=== PATIENT | female | born 1960 | race Caucasian/White ===

== ENCOUNTER 2024-04-22 13:51 | Emergency (ER) | payer OTHER ==
[~2024-04-22] VITALS: Ht 157.5 cm; Wt 108.3 kg
[~2024-04-22 13:51] MED LIST: ESCITALOPRAM OX10 MG PO; GABAPENTIN300 MG PO; GLIPIZIDE5 MG PO; LISINOPRIL-HCT1 EACH PO; SUMATRIPTAN SUC50 MG PO; TRULICITY1.5 MG/0.5 SUB-Q; XARELTO15 MG PO; XARELTO20 MG PO
--- OUTSIDE RECORDS SUMMARY | 2024-04-22 13:54 | XMS ---
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 [place] VISIT COUNT (12 MO.) 3 [place]MAINE [place] TOTAL 3 NOTE: Visits indicate total known visits. ED/UCC VISIT TRACKING (12 MO.) 04/22/2024 13:52 [facility] [place] TYPE: Emergency COMPLAINT: - WEAKNESS 03/05/2024 16:28 [facility] [place] TYPE: Emergency COMPLAINT: - CHEST PAIN DIAGNOSES: - Allergy status to narcotic agent - Allergy status to other antibiotic agents - Allergy status to other drugs, medicaments and biological substances - Allergy status to penicillin - Allergy status to sulfonamides - Allergy to other foods - Essential (primary) hypertension - long term acute care registered nurse (current) use of anticoagulants - [facility] (current) use of oral hypoglycemic drugs - Long-term (current) use of injectable non-insulin antidiabetic drugs - Other chest pain - Other fci (current) drug therapy - Type 2 diabetes mellitus without complications 02/12/2024 02:05 [facility] [place] TYPE: Emergency COMPLAINT: - ABD PAIN INPATIENT VISIT TRACKING (12 MO.) 02/12/2024 05:35 [facility] [place] TYPE: Critical Care COMPLAINT: - PULMONARY EMBOLUS DIAGNOSES: - Acquired absence of other specified parts of digestive tract - Acquired absence of other specified parts of digestive tract - Allergy status to other antibiotic agents - Allergy status to other antibiotic agents - Allergy status to other drugs, medicaments and biological substances - Allergy status to other drugs, medicaments and biological substances - Allergy status to sulfonamides - Allergy status to sulfonamides - Allergy to other foods - Allergy to other foods - Cardiac arrhythmia, unspecified - Cardiac arrhythmia, unspecified - Essential (primary) hypertension - Essential (primary) hypertension - Hypomagnesemia - Hypomagnesemia - Other fci (current) drug therapy - Other termite exterminator (current) drug therapy - Other pulmonary embolism without acute cor pulmonale - Other specified diseases of intestine - Other specified diseases of intestine - Other specified postprocedural states - Other specified postprocedural states - Type 2 diabetes mellitus without complications - Type 2 diabetes mellitus without complications [id number]
[2024-04-22] MEDS ORDERED: ondansetron HCL 4 MG/2 ML VIAL IV ONE (14:30)
[2024-04-22] MEDS ORDERED: SODIUM CHLORIDE 0.9% 1,000 ML IV ONE ×2 (14:30→16:30)
[2024-04-22 14:40] LABS: BASOPHILS 0.6 % (0-2); EOSINOPHILS 1.7 % (0-6); HEMATOCRIT 41.8 % (35.0-50.0); HEMOGLOBIN 13.4 g/dL (12.0-18.0); LYMPHOCYTES 15.6 % (24-44); MCH 26.8 (27-36); MCHC 32.1 g/dl (30-36); MCV 83.5 fl (81-99); MONOCYTES 6.2 % (0-12); NEUTROPHILS 75.9 % (39-80); PLATELET COUNT 341 K/uL (140-440); RBC 5.01 M/ul (4.3-5.7); RDW 14.6 (10.5-15.0)
[2024-04-22] MEDS ORDERED: VITAMIN D31250 MC1 PO (14:57)
[2024-04-22] MEDS ORDERED: OMEPRAZOLE20 MG PO (14:57)
[2024-04-22] MEDS ORDERED: TRAZODONE HCL50 MG PO (14:57)
[2024-04-22 14:59] LABS: ALBUMIN 3.6 g/dL (3.4-5.0); ALBUMIN/GLOBULIN RATIO 0.82 (1.1-2.4); ANION GAP 17.9 (7-21); BILIRUBIN, TOTAL 0.4 ng/dL (0.2-1.0); BUN/CREATININE RATIO 21.42 (6.0-28.6); CALCIUM 9.7 mg/dL (8.5-10.1); CREATININE, SERUM 1.54 mg/dL (0.55-1.02); POTASSIUM 3.9 mmol/L (3.5-5.1)
[2024-04-22] MEDS ORDERED: DIPHENOXYLATE/ATROPINE 1 EA TAB PO ONE (16:30)
[2024-04-22] MEDS ORDERED: ONDANSETRON ODT8 MG PO (16:34)
[2024-04-22] MEDS ORDERED: ONDANSETRON 4 MG HOME.PACK SL ONE (17:30)
[2024-04-22 18:20] VITALS: BP 135/62
== END 2024-04-22 18:20 | disposition home or self-care (01) ==
LOC: ED 13:51
PROVIDERS: Emergency Medicine
DX: K52.9 Noninfective gastroenteritis and colitis, unspecified (principal); I10 Essential (primary) hypertension; E11.9 Type 2 diabetes mellitus without complications; Z88.2 Allergy status to sulfonamides; Z88.1 Allergy status to other antibiotic agents; Z88.5 Allergy status to narcotic agent; Z88.0 Allergy status to penicillin; Z91.018 Allergy to other foods; Z88.8 Allergy status to other drugs, medicaments and biological substances; Z79.01 Long term (current) use of anticoagulants; Z79.899 Other long term (current) drug therapy; Z79.85 Long-term (current) use of injectable non-insulin antidiabetic drugs; Z79.84 Long term (current) use of oral hypoglycemic drugs
CPT/HCPCS: 36415; 80053; 85025; 96361; 96374; 99284-25; A9270; J2405; J7030

== ENCOUNTER 2025-03-11 02:20 | Emergency (ER) | payer OTHER ==
[~2025-03-11] VITALS: Ht 157.5 cm; Wt 99.4 kg
[~2025-03-11 02:20] MED LIST changes: +CYCLOBENZAPRINE5 MG PO; +DAPAGLIFLOZIN10 MG PO; +DAPAGLIFLOZIN5 MG PO; +LISINOPRIL40 MG PO; +ONDANSETRON ODT8 MG PO; +PRILOSEC OTC20 MG PO; +TRAZODONE HCL50 MG PO; +VICTOZA 3-0.6 MG/0.1 SUB-Q; +VITAMIN D31250 MC1 PO
[2025-03-11] MEDS ORDERED: ondansetron HCL 4 MG/2 ML VIAL IV ONE (02:45)
[2025-03-11] MEDS ORDERED: LACTATED RINGER'S 1,000 ML IV ONE (02:45)
[2025-03-11 03:05] LABS: BASOPHILS 0.4 % (0-2); EOSINOPHILS 0.9 % (0-6); HEMATOCRIT 43.7 % (35.0-50.0); LYMPHOCYTES 3.9 % (24-44); MCH 24.1 (27-36); MCHC 31.9 g/dl (30-36); MCV 75.4 fl (81-99); MONOCYTES 5.9 % (0-12); NEUTROPHILS 88.9 % (39-80); PLATELET COUNT 421 K/uL (140-440); RDW 17.9 (10.5-15.0)
[2025-03-11 03:19] LABS: ALBUMIN 3.5 g/dL (3.4-5.0); ALBUMIN/GLOBULIN RATIO 0.58 (1.1-2.4); ANION GAP 13.2 (7-21); BILIRUBIN, TOTAL 0.5 mg/dL (0.2-1.0); BUN/CREATININE RATIO 27.58 (6.0-28.6); CALCIUM 10.4 mg/dL (8.5-10.1); CREATININE, SERUM 1.16 mg/dL (0.55-1.02); MAGNESIUM 1.8 mg/dL (1.8-2.4); POTASSIUM 4.2 mmol/L (3.5-5.1); PROTEIN, TOTAL 9.5 g/dL (6.4-8.2)
[2025-03-11 03:31] LABS: CORONAVIRUS COVID-19 AG NEGATIVE (NEGATIVE); INFLUENZA A AG NEGATIVE (NEGATIVE); INFLUENZA B AG NEGATIVE (NEGATIVE)
[2025-03-11] MEDS ORDERED: ONDANSETRON ODT8 MG PO (03:37)
[2025-03-11] MEDS ORDERED: PROMETHAZINE HC25 M1 PO (03:37)
[2025-03-11] MEDS ORDERED: LOMOTIL TABLET1 EACH PO (03:37)
[2025-03-11] MEDS ORDERED: DIPHENOXYLATE/ATROPINE 1 EA TAB PO ONE (03:45)
[2025-03-11 03:55] VITALS: BP 123/68
[2025-03-11] MEDS ORDERED: ONDANSETRON 4 MG HOME.PACK SL ONE (04:00)
[2025-03-11] MEDS ORDERED: PROMETHAZINE HCL 25 MG HOME.PACK PO ONE (04:00)
== END 2025-03-11 03:58 | disposition home or self-care (01) ==
LOC: ED 02:20
PROVIDERS: Family Medicine
DX: K52.9 Noninfective gastroenteritis and colitis, unspecified (principal); E11.9 Type 2 diabetes mellitus without complications; I10 Essential (primary) hypertension; Z79.899 Other long term (current) drug therapy; Z88.2 Allergy status to sulfonamides; Z88.1 Allergy status to other antibiotic agents; Z91.018 Allergy to other foods; Z88.8 Allergy status to other drugs, medicaments and biological substances; Z88.5 Allergy status to narcotic agent
CPT/HCPCS: 36415; 80053; 83735; 85025; 96374; 99284-25; A9270; J2405; J7121

== ENCOUNTER 2025-05-10 16:36 | Emergency (ER) | payer OTHER ==
[~2025-05-10] VITALS: Ht 157.5 cm; Wt 104.0 kg
[~2025-05-10 16:36] MED LIST changes: +LOMOTIL TABLET1 EACH PO; +PROMETHAZINE HC25 M1 PO
[2025-05-10 17:00] LABS: BASOPHILS 0.3 % (0.1-1.2); HEMOGLOBIN 11.7 g/dL (11.2-15.7); LYMPHOCYTES 3.8 % (19.3-51.7); MCH 23.7 PG (25.6-32.2); MCV 78.9 fL (79.4-94.8); MONOCYTES 6.1 % (4.7-12.5); NEUTROPHILS 88.5 % (34.0-71.1); PLATELET COUNT 308 K/uL (182-369); RBC 4.94 M/uL (3.93-5.22)
[2025-05-10] MEDS ORDERED: SODIUM CHLORIDE 0.9% 1,000 ML IV PRN ×2 (17:00)
[2025-05-10] MEDS ORDERED: CEFTRIAXONE SODIUM 2 GM in SODIUM CHLORIDE 0.9% 100 ML IV ONE (17:00)
[2025-05-10 17:16] LABS: ALBUMIN 2.8 g/dL (3.4-5.0); ALBUMIN/GLOBULIN RATIO 0.55 (1.1-2.4); ANION GAP 11.6 (7-21); BILIRUBIN, TOTAL 0.5 mg/dL (0.2-1.0); BUN/CREATININE RATIO 22.77 (6.0-28.6); CALCIUM 9.7 mg/dL (8.5-10.1); CREATININE, SERUM 1.01 mg/dL (0.55-1.02); POTASSIUM 4.6 mmol/L (3.5-5.1); PROTEIN, TOTAL 7.9 g/dL (6.4-8.2)
[2025-05-10 17:21] LABS: LACTIC ACID, BLOOD 0.9 mmol/L (0.4-2.0)
[2025-05-10 18:24] LABS: BILIRUBIN, URINE NEGATIVE (negative); BLOOD/HGB, URINE NEGATIVE (Negative); KETONE, URINE NEGATIVE (Negative); LEUK ESTERASE, URINE NEGATIVE (negative); NITRITE, URINE NEGATIVE (negative)
[2025-05-10] MEDS ORDERED: metroNIDAZOLE/SODIUM CHLORIDE 500 MG/100 ML PIGGYBACK IV ONE (20:15)
[2025-05-10] MEDS ORDERED: ACETAMINOPHEN 500 MG TAB PO ONE (21:00)
[2025-05-10 21:40] VITALS: BP 126/66
--- NOTE | 2025-05-12 10:11 | EKG ---
[facility] [address] [place], [place] [address] Signed Sinus tachycardia Left axis deviation Low voltage QRS Cannot rule out Anterior infarct (cited on or before 12-FEB-2024) Abnormal ECG When compared with ECG of 12-OCT-2024 17:55, No significant change was found Confirmed by Juan C Casanova DO ([id number]) on 05/12/2025 10:11:48 AM Electronically Signed By: JUAN C CASANOVA DO 05/12/25 1011 PATIENT NAME: CAMILO ROSE Electrocardiogram DATE OF : 60 PHYSICIAN: JUAN C CASANOVA DO REPORT #: [id number] REPORT IS CONFIDENTIAL AND NOT TO BE RELEASED WITHOUT AUTHORIZATION
== END 2025-05-10 21:40 | disposition short-term general hospital (02) ==
LOC: ED 16:36
PROVIDERS: Emergency Medicine
DX: A41.9 Sepsis, unspecified organism (principal); K65.1 Peritoneal abscess; E11.9 Type 2 diabetes mellitus without complications; I10 Essential (primary) hypertension; Z88.2 Allergy status to sulfonamides; Z88.1 Allergy status to other antibiotic agents; Z88.0 Allergy status to penicillin; Z91.018 Allergy to other foods; Z79.899 Other long term (current) drug therapy
CPT/HCPCS: 36415; 71045; 74177; 80053; 81003; 83605; 85025; 87040; 96375; 99285-25; A9270; J0696; J7030; Q9967

== ENCOUNTER 2025-06-02 12:50 | Emergency (ER) | payer OTHER ==
[~2025-06-02] VITALS: Ht 157.5 cm; Wt 96.4 kg
--- OUTSIDE RECORDS SUMMARY | 2025-06-02 12:58 | XMS ---
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 E.D. VISIT COUNT (12 MO.) 5 TREMAINE Rapp TOTAL 5 NOTE: Visits indicate total known visits. ED/UCC VISIT TRACKING (12 MO.) 06/02/2025 12:52 [facility] [place] TYPE: Emergency COMPLAINT: - NAUSEA, DIARRHEA, HOT/COLD 05/10/2025 16:37 [facility] [place] TYPE: Emergency COMPLAINT: - ABDOMEN PAIN DIAGNOSES: - Allergy status to other antibiotic agents - Allergy status to penicillin - Allergy status to sulfonamides - Allergy to other foods - Essential (primary) hypertension - Other intermodal truck driver (current) drug therapy - Peritoneal abscess - Sepsis, unspecified organism - Type 2 diabetes mellitus without complications - Unspecified abdominal pain 03/11/2025 02:21 [facility] [place] TYPE: Emergency COMPLAINT: - FLU SYMPTOMS DIAGNOSES: - Allergy status to narcotic agent - Allergy status to other antibiotic agents - Allergy status to other drugs, medicaments and biological substances - Allergy status to sulfonamides - Allergy to other foods - Essential (primary) hypertension - Nausea with vomiting, unspecified - Noninfective gastroenteritis and colitis, unspecified - Other intermodal truck driver (current) drug therapy - Type 2 diabetes mellitus without complications 10/12/2024 13:58 [facility] [place] TYPE: Emergency COMPLAINT: - VOMITING 07/05/2024 20:36 [facility] TYPE: Emergency COMPLAINT: - FALL INPATIENT VISIT TRACKING (12 MO.) 05/10/2025 23:53 [facility] TYPE: Colorectal DIAGNOSES: - Colostomy status - intraabdominal abscess/ sepsis 03/21/2025 05:48 [facility] TYPE: Colorectal DIAGNOSES: - Diverticulosis of intestine, part unspecified, without perforation or abscess without bleeding - Other specified diseases of intestine - Type 2 diabetes mellitus with hyperglycemia - Type 2 diabetes mellitus with hyperglycemia - Unspecified intestinal obstruction, unspecified as to partial versus complete obstruction - Unspecified intestinal obstruction, unspecified as to partial versus complete obstruction 10/13/2024 23:02 [facility] TYPE: Colorectal DIAGNOSES: - Unspecified intestinal obstruction, unspecified as to partial versus complete obstruction - large bowel obtruction with mass 10/12/2024 18:[address] [facility] [place] TYPE: Medical Surgical COMPLAINT: - LARGE BOWEL OBSTRUCTION DIAGNOSES: - Acquired absence of other organs - Acquired absence of other organs - Acquired absence of other specified parts of digestive tract - Acquired absence of other specified parts of digestive tract - Allergy status to narcotic agent - Allergy status to narcotic agent - Allergy status to other antibiotic agents - Allergy status to other antibiotic agents - Allergy status to other drugs, medicaments and biological substances - Allergy status to other drugs, medicaments and biological substances - Allergy status to penicillin - Allergy status to penicillin - Allergy status to sulfonamides - Allergy status to sulfonamides - Allergy to other foods - Allergy to other foods - Body mass index [BMI] 40.0-44.9, adult - Body mass index [BMI] 40.0-44.9, adult - Diverticulosis of large intestine without perforation or abscess without bleeding - Diverticulosis of large intestine without perforation or abscess without bleeding - Essential (primary) hypertension - Essential (primary) hypertension - Flatulence - Flatulence - Gastro-esophageal reflux disease without esophagitis - Gastro-esophageal reflux disease without esophagitis - History of uterine scar from previous surgery - History of uterine scar from previous surgery - Insomnia, unspecified - Insomnia, unspecified - Irritable bowel syndrome without diarrhea - Irritable bowel syndrome without diarrhea - shelter (current) use of anticoagulants - termite treater helper (current) use of anticoagulants - termite treater helper (current) use of aromatase inhibitors - termite treater helper (current) use of aromatase inhibitors - shelter (current) use of oral hypoglycemic drugs - shelter (current) use of oral hypoglycemic drugs - Major depressive disorder, single episode, unspecified - Major depressive disorder, single episode, unspecified - Migraine, unspecified, not intractable, without status migrainosus - Migraine, unspecified, not intractable, without status migrainosus - Nausea with vomiting, unspecified - Obesity, unspecified - Obesity, unspecified - Other senior living (current) drug therapy - Other senior living (current) drug therapy - Other muscle spasm - Other muscle spasm - Other specified postprocedural states - Other specified postprocedural states - Partial intestinal obstruction, unspecified as to cause - Partial intestinal obstruction, unspecified as to cause - Personal history of other diseases of the digestive system - Personal history of other diseases of the digestive system - Personal history of pulmonary embolism - Personal history of pulmonary embolism - Presence of left artificial knee joint - Presence of left artificial knee joint - Presence of right artificial knee joint - Presence of right artificial knee joint - Tubal ligation status - Tubal ligation status - Type 2 diabetes mellitus with diabetic neuropathy, unspecified - Type 2 diabetes mellitus with diabetic neuropathy, unspecified 07/05/2024 20:[address] [facility] [place] TYPE: Observation COMPLAINT: - ACUTE RENAL FAILURE DIAGNOSES: - Acute kidney failure, unspecified - Allergy status to other antibiotic agents - Allergy status to penicillin - Allergy status to sulfonamides - Displaced fracture of distal phalanx of right ring finger, initial encounter for closed fracture - Essential (primary) hypertension - Fall on same level from slipping, tripping and stumbling without subsequent striking against object, initial encounter - shelter (current) use of anticoagulants - Other intermodal truck driver (current) drug therapy - Type 2 diabetes mellitus without complications [email or web address]
[2025-06-02] MEDS ORDERED: SODIUM CHLORIDE 0.9% 1,500 ML IV PRN (13:15)
[2025-06-02 13:23] LABS: BASOPHILS 0.2 % (0.1-1.2); EOSINOPHILS 0 % (0.7-5.8); LYMPHOCYTES 4.1 % (19.3-51.7); MCH 23.5 PG (25.6-32.2); MCHC 29.2 g/dL (32.2-35.5); MCV 80.4 fL (79.4-94.8); MONOCYTES 5.0 % (4.7-12.5); NEUTROPHILS 89.9 % (34.0-71.1); RBC 4.34 M/uL (3.93-5.22)
[2025-06-02 13:39] LABS: ALT (SGPT) 8.0 U/L (14-59); AST (SGOT) 10.0 U/L (15-37); GLOMERULAR FILTRATION RATE,EST 50.0 mL/min (>60); PROTEIN, TOTAL 7.9 g/dL (6.4-8.2); UREA NITROGEN 20.0 mg/dL (7-18)
[2025-06-02 13:43] LABS: LACTIC ACID, BLOOD 1.1 mmol/L (0.4-2.0)
[2025-06-02 15:26] LABS: BLOOD/HGB, URINE NEGATIVE (Negative); KETONE, URINE NEGATIVE (Negative); LEUK ESTERASE, URINE NEGATIVE (negative); NITRITE, URINE NEGATIVE (negative)
[2025-06-02 18:34] VITALS: BP 120/52
[2025-06-02] MEDS ORDERED: OXYCODONE/ACETAMINOPHEN 1 TAB HOME.PACK PO ONE (18:45)
[2025-06-02] MEDS ORDERED: OXYCODONE HCL 5 MG TAB PO ONE (18:45)
--- NOTE | 2025-06-03 08:18 | EKG ---
[facility] [address] [place] [address] Signed Sinus rhythm with premature atrial complexes Minimal voltage criteria for LVH, may be normal variant ( R in aVL ) Possible Anterolateral infarct , age undetermined Abnormal ECG When compared with ECG of 10-May-2025 16:49:18 premature atrial complexes are now present Confirmed by Janny Gallegos MD ([id number]) on 06/03/2025 8:18:03 AM Electronically Signed By: JANNY GALLEGOS MD 06/03/25 0818 PATIENT NAME: CAMILO ROSE Electrocardiogram DATE OF : 60 PHYSICIAN: JANNY GALLEGOS MD REPORT #: [id number] REPORT IS CONFIDENTIAL AND NOT TO BE RELEASED WITHOUT AUTHORIZATION
== END 2025-06-02 18:49 | disposition home or self-care (01) ==
LOC: ED 12:50
PROVIDERS: Emergency Medicine
DX: R91.1 Solitary pulmonary nodule (principal); D72.829 Elevated white blood cell count, unspecified; F11.23 Opioid dependence with withdrawal; E11.9 Type 2 diabetes mellitus without complications; I10 Essential (primary) hypertension; Z93.3 Colostomy status; Z79.899 Other long term (current) drug therapy; Z88.2 Allergy status to sulfonamides; Z88.1 Allergy status to other antibiotic agents; Z88.0 Allergy status to penicillin; Z91.018 Allergy to other foods; Z88.8 Allergy status to other drugs, medicaments and biological substances
CPT/HCPCS: 36415; 71045; 74177; 80053; 81003; 83605; 85025; 85060; 87040; 93005; 93010; 96361; 96367; 96375; 99284-25; A9270; J0696; J2405; Q9967; U0002

== ENCOUNTER 2025-06-14 11:16 | Emergency (ER) | payer OTHER ==
[~2025-06-14] VITALS: Ht 157.5 cm; Wt 96.4 kg
--- NOTE | ~2025-06-14 | EKG ---
[facility] [address] [place], [place] [address] Draft EK completed, results pending confirmation PATIENT NAME: ARPAN ROSETROY ARGUETA Electrocardiogram DATE OF : 60 PHYSICIAN: PRELIMINARY REPORT #: [id number] REPORT IS CONFIDENTIAL AND NOT TO BE RELEASED WITHOUT AUTHORIZATION
--- OUTSIDE RECORDS SUMMARY | 2025-06-14 11:23 | XMS ---
PreManage Notification: CAMILO ROSE Security Equipment Monitor Phototypesetting Events No recent Security Events currently on file CRITERIA MET - [facility] - 2 Visits in 30 Days CARE PROVIDERS -, [facility] Dentist: Clothing Patternmaker [facility] PHONE: [phone] -[place]- Dentist: Clothing Patternmaker [facility] PHONE: [phone] [place] PRIMARY Clinic/Center: Primary Care [facility] PHONE: [phone] Genevieve has no Care Guidelines for this patient. E.D. VISIT COUNT (12 MO.) 6 TREMAINE Rapp TOTAL 6 NOTE: Visits indicate total known visits. ED/UCC VISIT TRACKING (12 MO.) 06/14/2025 11:16 [facility] [place] TYPE: Emergency COMPLAINT: - RT LEG SWELLING 06/02/2025 12:52 [facility] TYPE: Emergency COMPLAINT: - NAUSEA, DIARRHEA, HOT/COLD DIAGNOSES: - Allergy status to other antibiotic agents - Allergy status to other drugs, medicaments and biological substances - Allergy status to penicillin - Allergy status to sulfonamides - Allergy to other foods - Colostomy status - Elevated white blood cell count, unspecified - Essential (primary) hypertension - Opioid dependence with withdrawal - Other shelter (current) drug therapy - Solitary pulmonary nodule - Type 2 diabetes mellitus without complications - Unspecified abdominal pain 05/10/2025 16:37 [facility] TYPE: Emergency COMPLAINT: - ABDOMEN PAIN DIAGNOSES: - Allergy status to other antibiotic agents - Allergy status to penicillin - Allergy status to sulfonamides - Allergy to other foods - Essential (primary) hypertension - Other remote computer terminal operator (current) drug therapy - Peritoneal abscess - [...] Noninfective gastroenteritis and colitis, unspecified - Other remote computer terminal operator (current) drug therapy - Type 2 diabetes mellitus without complications 10/12/2024 13:58 [facility] TYPE: Emergency COMPLAINT: - VOMITING 07/05/2024 20:36 [facility] TYPE: Emergency COMPLAINT: - FALL INPATIENT VISIT TRACKING (12 MO.) 05/10/2025 23:53 [facility] TYPE: Colorectal DIAGNOSES: - Colostomy status - intraabdominal abscess/ sepsis 03/21/2025 05:48 [facility] TYPE: Colorectal DIAGNOSES: - Diverticulosis of intestine, part unspecified, without perforation or abscess without bleeding - Other specified diseases of intestine - Type 2 diabetes mellitus with hyperglycemia - Type 2 diabetes mellitus with hyperglycemia - Unspecified intestinal obstruction, unspecified as to partial versus complete obstruction - Unspecified intestinal obstruction, unspecified as to partial versus complete obstruction 10/13/2024 23:02 [facility] [place] TYPE: Colorectal DIAGNOSES: - Unspecified intestinal obstruction, unspecified as to partial versus complete obstruction - large bowel obtruction with mass 10/12/2024 18:11 [facility] TYPE: Medical Surgical COMPLAINT: - LARGE [...] - Irritable bowel syndrome without diarrhea - prison (current) use of anticoagulants - prison (current) use of anticoagulants - prison (current) use of aromatase inhibitors - truck terminal manager (current) use of aromatase inhibitors - truck terminal manager (current) use of oral hypoglycemic drugs - prison (current) use of oral hypoglycemic drugs - Major depressive disorder, single episode, unspecified - Major depressive disorder, single episode, unspecified - Migraine, unspecified, not intractable, without status migrainosus - Migraine, unspecified, not intractable, without status migrainosus - Nausea with vomiting, unspecified - Obesity, unspecified - Obesity, unspecified - Other remote computer terminal operator (current) drug therapy - Other shelter (current) drug therapy - Other muscle spasm [...] subsequent striking against object, initial encounter - prison (current) use of anticoagulants - Other shelter (current) drug therapy - Type 2 diabetes mellitus without complications [email or web address]
[2025-06-14] MEDS ORDERED: TRULICITY4.5 MG/0.5 SUB-Q (11:43)
[2025-06-14 13:30] LABS: BASOPHILS 0.6 % (0.1-1.2); EOSINOPHILS 5.9 % (0.7-5.8); LYMPHOCYTES 17.2 % (19.3-51.7); MCH 23.1 PG (25.6-32.2); MCHC 28.7 g/dL (32.2-35.5); MCV 80.4 fL (79.4-94.8); MONOCYTES 6.8 % (4.7-12.5); NEUTROPHILS 69.1 % (34.0-71.1); RBC 4.55 M/uL (3.93-5.22)
[2025-06-14 13:40] LABS: INR 0.95 (0.80-1.30); PROTIME 12.3 Sec (11.2-14.2)
[2025-06-14 13:45] LABS: ALT (SGPT) 11.0 U/L (14-59); AST (SGOT) 10.0 U/L (15-37); GLOMERULAR FILTRATION RATE,EST 59.0 mL/min (>60); PROTEIN, TOTAL 7.7 g/dL (6.4-8.2); UREA NITROGEN 18.0 mg/dL (7-18)
[2025-06-14] MEDS ORDERED: ENOXAPARIN40 MG/0.4 SUB-Q (15:27)
[2025-06-14] MEDS ORDERED: XARELTO15 MG PO (15:47)
[2025-06-14 16:49] VITALS: BP 107/68
== END 2025-06-14 16:50 | disposition home or self-care (01) ==
LOC: ED 11:16
PROVIDERS: Emergency Medicine
DX: I26.99 Other pulmonary embolism without acute cor pulmonale (principal); I82.431 Acute embolism and thrombosis of right popliteal vein; I82.4Z1 Acute embolism and thrombosis of unspecified deep veins of right distal lower extremity; E11.9 Type 2 diabetes mellitus without complications; I10 Essential (primary) hypertension; Z88.2 Allergy status to sulfonamides; Z88.1 Allergy status to other antibiotic agents; Z88.0 Allergy status to penicillin; Z91.018 Allergy to other foods
CPT/HCPCS: 36415; 71260; 80053; 85025; 85610; 93005; 93010; 99284-25; Q9967

== ENCOUNTER 2025-10-26 17:01 | Emergency (ER) | payer MEDICARE, OTHER ==
[~2025-10-26] VITALS: Ht 157.5 cm; Wt 104.9 kg
[~2025-10-26 17:01] MED LIST changes: +ENOXAPARIN40 MG/0.4 SUB-Q; +TRULICITY4.5 MG/0.5 SUB-Q
--- OUTSIDE RECORDS SUMMARY | 2025-10-26 17:03 | XMS ---
PreManage Notification: CAMILO ROSE Security Three Knife Trimmer Events No recent Security Events currently on file CRITERIA MET - [place] CARE PROVIDERS -, [facility] Dentist: Magazine Worker [facility] PHONE: [phone] -[place]- Dentist: Magazine Worker Current [facility] PHONE: [phone] Genevieve has no Care Guidelines for this patient. [place] VISIT COUNT (12 MO.) 5 TREMAINE Rapp TOTAL 5 NOTE: Visits indicate total known visits. ED/UCC VISIT TRACKING (12 MO.) 10/26/2025 17:02 [facility] TYPE: Emergency COMPLAINT: - ADBONIAL PAIN 06/14/2025 11:16 [facility] TYPE: Emergency COMPLAINT: - RT LEG SWELLING DIAGNOSES: - Acute embolism and thrombosis of right popliteal vein - Acute embolism and thrombosis of unspecified deep veins of right distal lower extremity - Allergy status to other antibiotic agents - Allergy status to penicillin - Allergy status to sulfonamides - Allergy to other foods - Essential (primary) hypertension - Other pulmonary embolism without acute cor pulmonale - Pain in right lower leg - Type 2 diabetes mellitus without complications 06/02/2025 12:52 [facility] [place] TYPE: Emergency [...] - Opioid dependence with withdrawal - Other long chain quiller tender (current) drug therapy - Solitary pulmonary nodule - Type 2 diabetes mellitus without complications - Unspecified abdominal pain 05/10/2025 16:37 [facility] TYPE: Emergency COMPLAINT: - ABDOMEN PAIN DIAGNOSES: - Allergy status to other antibiotic agents - Allergy status to penicillin - Allergy status to sulfonamides - Allergy to other foods - Essential (primary) hypertension - Other long chain quiller tender (current) drug therapy - Peritoneal abscess - [...] Noninfective gastroenteritis and colitis, unspecified - Other fpc (current) drug therapy - Type 2 diabetes mellitus without complications INPATIENT VISIT TRACKING (12 MO.) 05/10/2025 23:53 [...] unspecified as to partial versus complete obstruction [email or web address]
[2025-10-26] MEDS ORDERED: LANTUS SOL100 UNIT/1 SUB-Q (17:20)
[2025-10-26] MEDS ORDERED: LATANOPROST2.5 ML OPTH (17:20)
[2025-10-26 17:54] LABS: BASOPHILS 0.3 % (0.1-1.2); EOSINOPHILS 2.0 % (0.7-5.8); LYMPHOCYTES 12.2 % (19.3-51.7); MCH 22.9 PG (25.6-32.2); MCHC 29.2 g/dL (32.2-35.5); MCV 78.2 fL (79.4-94.8); MONOCYTES 8.1 % (4.7-12.5); NEUTROPHILS 77.2 % (34.0-71.1); RBC 4.90 M/uL (3.93-5.22)
[2025-10-26 18:12] LABS: ALT (SGPT) 35.0 U/L (14-59); AST (SGOT) 26.0 U/L (15-37); GLOMERULAR FILTRATION RATE,EST 87.0 mL/min (>60); PROTEIN, TOTAL 7.6 g/dL (6.4-8.2); UREA NITROGEN 24.0 mg/dL (7-18)
[2025-10-26 19:06] LABS: BLOOD/HGB, URINE NEGATIVE (Negative); KETONE, URINE NEGATIVE (Negative); LEUK ESTERASE, URINE NEGATIVE (negative); NITRITE, URINE NEGATIVE (negative)
[2025-10-26] MEDS ORDERED: LEVOFLOXACIN500 MG PO (20:42)
[2025-10-26] MEDS ORDERED: levoFLOXacin 500 MG TAB PO ONE (20:45)
[2025-10-26] MEDS ORDERED: PERCOCET 5-3251 EACH PO (20:45)
[2025-10-26] MEDS ORDERED: OXYCODONE/ACETAMINOPHEN 1 TAB HOME.PACK PO ONE (20:45)
[2025-10-26 21:01] VITALS: BP 167/83
== END 2025-10-26 21:03 | disposition home or self-care (01) ==
LOC: ED 17:01
PROVIDERS: Emergency Medicine
DX: K43.9 Ventral hernia without obstruction or gangrene (principal); R19.7 Diarrhea, unspecified; E11.9 Type 2 diabetes mellitus without complications; I10 Essential (primary) hypertension; Z88.2 Allergy status to sulfonamides; Z88.8 Allergy status to other drugs, medicaments and biological substances; Z88.0 Allergy status to penicillin; Z79.01 Long term (current) use of anticoagulants
CPT/HCPCS: 36415; 74177; 80053; 81003; 83690; 85025; 99284-25